=== PATIENT | female | born 2000 | race Caucasian/White ===

== ENCOUNTER 2021-05-11 20:38 | Emergency (ER) | payer OTHER ==
[2021-05-11 20:44] VITALS: BP 122/80; PULSE 94; BMI 21.2
[2021-05-11 20:47] VITALS: TEMP 97.8
== END 2021-05-11 21:25 | disposition home or self-care (01) ==
LOC: JER 20:38 → JERFT 20:38
DX: S39.012A Strain of muscle, fascia and tendon of lower back, initial encounter (principal); X50.0XXA Overexertion from strenuous movement or load, initial encounter
CPT/HCPCS: 99282-25